=== PATIENT | female | born 1985 | race Two or more races ===

== ENCOUNTER 2023-04-05 23:00 | Inpatient (IN) | payer MEDICAID ==
[~2023-04-05] VITALS: Ht 162.6 cm; Wt 110.8 kg
[2023-04-05] MEDS ORDERED: MECLIZINE HCL 25 MG TAB PO ONE (23:30)
[2023-04-05] MEDS ORDERED: LORazepam 2MG/ML-1ML VIAL IV ONE (23:30)
[2023-04-05] MEDS ORDERED: LACTATED RINGER'S 2,000 ML IV ONE (23:30)
[2023-04-06 00:07] LABS: Basophils # (auto) 0.1 10 ^3/uL (0-0.2); Basophils % (auto) 0.4 % (0.0-2.0); Eosinophils # (auto) 0.2 10 ^3/uL (0-0.8); Eosinophils % (auto) 1.4 % (0.0-7.0); Hematocrit 39.1 % (36.0-46.0); Lymphocytes # (auto) 3.3 10 ^3/uL (0.4-5.4); Lymphocytes % (auto) 23.7 % (10.0-50.0); Mean Corpuscular Hemoglobin 28.3 pg (28.0-32.0); Mean Corpuscular Hgb Conc. 33.3 g/dL (32.0-36.0); Monocytes # (auto) 0.7 10 ^3/uL (0-1.3); Monocytes % (auto) 4.9 % (0.0-12.0); Neutrophils # (auto) 9.8 10 ^3/uL (1.6-8.6); Neutrophils % (auto) 69.6 % (37.0-80.0); Red Cell Distribution Width 15.1 % (11.8-14.3)
[2023-04-06 00:26] LABS: Albumin 3.2 g/dL (3.4-5.0); Potassium 4.4 mmol/L (3.5-5.1)
[2023-04-06 00:28] LABS: BUN/Creatinine Ratio 16.8 (10.0-20.0)
[2023-04-06 00:31] LABS: Bilirubin, Total 0.4 mg/dL (0.2-1.0); Total Protein 7.5 g/dL (6.4-8.2)
[2023-04-06] MEDS ORDERED: ONDANSETRON HCL 4 MG/2 ML VIAL IV ONE (00:45)
[2023-04-06] MEDS ORDERED: LORazepam 2MG/ML-1ML VIAL IV ONE (03:45)
[2023-04-06] MEDS ORDERED: MECLIZINE HCL 25 MG TAB PO ONE (03:45)
[2023-04-06] MEDS ORDERED: DexAMETHasone SOD PHOS 10MG/1ML VIAL INJ IV ONE (03:45)
[2023-04-06 07:11] LABS: Urine Amorphous Crystal FEW /hpf (None Seen); Urine Bacteria NONE SEEN /hpf (None Seen); Urine Blood Negative /uL (Negative); Urine Specific Gravity 1.014 (1.001-1.035); Urine WBC 1 /hpf (0 - 5)
[2023-04-06] MEDS ORDERED: ONDANSETRON HCL 4 MG/2 ML VIAL IV PRN (07:15)
[2023-04-06] MEDS ORDERED: ACETAMINOPHEN 325 MG TAB PO PRN (07:15)
[2023-04-06] MEDS: PROPRANOLOL HCL 20 MG TAB PO SCH (09:26)
[2023-04-06] MEDS: PANTOPRAZOLE 40 MG TAB PO SCH (09:26)
[2023-04-06] MEDS: methIMAzole 5 MG TAB PO SCH (09:27)
[2023-04-06] MEDS: MECLIZINE HCL 25 MG TAB PO PRN ×2 (14:09→22:07)
[2023-04-06] MEDS ORDERED: LORazepam 2MG/ML-1ML VIAL IV PRN (21:00)
[2023-04-06 22:01] VITALS: BP 119/64
[2023-04-06] MEDS ORDERED: ARIP1TAB7 PO (22:13)
[2023-04-06] MEDS ORDERED: PROP80CA40 PO (22:13)
[2023-04-06] MEDS ORDERED: BUPR150T8 PO (22:13)
[2023-04-06] MEDS ORDERED: CHOL500035 PO (22:13)
[2023-04-06] MEDS ORDERED: METF-370 PO (22:13)
[2023-04-06] MEDS ORDERED: ASCO500T5 PO (22:13)
[2023-04-06] MEDS ORDERED: METH10TA87 PO (22:13)
[2023-04-07] MEDS: MECLIZINE HCL 25 MG TAB PO PRN ×3 (04:17→18:16)
[2023-04-07 05:00] VITALS: BP 119/71
[2023-04-07 09:00] VITALS: BP 120/77
[2023-04-07] MEDS: PROPRANOLOL HCL 20 MG TAB PO SCH (10:38)
[2023-04-07] MEDS: PANTOPRAZOLE 40 MG TAB PO SCH (10:38)
[2023-04-07] MEDS: methIMAzole 5 MG TAB PO SCH (10:45)
[2023-04-07 17:01] VITALS: BP 119/74
[2023-04-07 22:00] VITALS: BP 122/76
[2023-04-08 05:00] VITALS: BP 106/61
[2023-04-08] MEDS: MECLIZINE HCL 25 MG TAB PO PRN ×3 (05:32→20:59)
[2023-04-08] MEDS: PANTOPRAZOLE 40 MG TAB PO SCH (10:01)
[2023-04-08] MEDS: methIMAzole 5 MG TAB PO SCH (10:02)
[2023-04-08] MEDS: PROPRANOLOL HCL 20 MG TAB PO SCH (10:02)
[2023-04-08 12:30] VITALS: BP 116/70
[2023-04-08] MEDS: diphenhdrAMINE HCL 25 MG CAP PO PRN (16:29)
[2023-04-08 17:00] VITALS: BP 109/68
[2023-04-08 22:00] VITALS: BP 113/64
[2023-04-09 05:00] VITALS: BP 109/61
[2023-04-09] MEDS: MECLIZINE HCL 25 MG TAB PO PRN ×2 (05:43→14:00)
[2023-04-09 09:00] VITALS: BP 124/79
[2023-04-09] MEDS: PANTOPRAZOLE 40 MG TAB PO SCH (10:50)
[2023-04-09] MEDS: PROPRANOLOL HCL 20 MG TAB PO SCH (10:51)
[2023-04-09] MEDS: methIMAzole 5 MG TAB PO SCH (10:52)
[2023-04-09 13:00] VITALS: BP_SYST 111; BP_SYST 123; BP_DIAS 72; BP_DIAS 77
[2023-04-09] MEDS: diphenhdrAMINE HCL 25 MG CAP PO PRN (21:06)
[2023-04-09 22:00] VITALS: BP 110/73
[2023-04-09] MEDS: DOCUSATE SOD 100 MG CAP PO SCH (22:00)
[2023-04-10 05:00] VITALS: BP 107/58
[2023-04-10] MEDS: MECLIZINE HCL 25 MG TAB PO PRN ×2 (06:59→19:31)
[2023-04-10 07:30] VITALS: BP 124/79
[2023-04-10 08:00] VITALS: BP 113/70
[2023-04-10] MEDS: DOCUSATE SOD 100 MG CAP PO SCH ×2 (10:00→22:00)
[2023-04-10] MEDS: methIMAzole 5 MG TAB PO SCH (10:16)
[2023-04-10] MEDS: PANTOPRAZOLE 40 MG TAB PO SCH (10:17)
[2023-04-10] MEDS: PROPRANOLOL HCL 20 MG TAB PO SCH (10:21)
[2023-04-10 11:50] LABS: Basophils # (auto) 0.1 10 ^3/uL (0-0.2); Basophils % (auto) 0.6 % (0.0-2.0); Eosinophils # (auto) 0.2 10 ^3/uL (0-0.8); Eosinophils % (auto) 1.3 % (0.0-7.0); Hematocrit 41.8 % (36.0-46.0); Hemoglobin 13.7 g/dL (12.2-16.2); Lymphocytes # (auto) 2.6 10 ^3/uL (0.4-5.4); Mean Corpuscular Hemoglobin 27.9 pg (28.0-32.0); Mean Corpuscular Hgb Conc. 32.8 g/dL (32.0-36.0); Mean Corpuscular Volume 85.2 fL (80.0-100.0); Monocytes # (auto) 0.6 10 ^3/uL (0-1.3); Monocytes % (auto) 5.1 % (0.0-12.0); Nucleated Red Blood Cells % 0.2 %; Red Blood Cells 4.91 10^6/uL (4.0-5.20); Red Cell Distribution Width 15.4 % (11.8-14.3); White Blood Cell 11.5 10^3/uL (4.4-10.8)
[2023-04-10 12:00] VITALS: BP 114/74
[2023-04-10 12:13] LABS: BUN/Creatinine Ratio 14.6 (10.0-20.0); Calcium 8.2 mg/dL (8.5-10.1); Potassium 4.1 mmol/L (3.5-5.1)
[2023-04-10 16:00] VITALS: BP 105/61
[2023-04-10] MEDS: diphenhdrAMINE HCL 25 MG CAP PO PRN (20:57)
[2023-04-10 22:00] VITALS: BP 116/62
[2023-04-11 05:00] VITALS: BP 105/57
[2023-04-11 07:30] VITALS: BP 113/70
[2023-04-11 09:00] VITALS: BP 101/61
[2023-04-11] MEDS: DOCUSATE SOD 100 MG CAP PO SCH (10:00)
[2023-04-11] MEDS: PANTOPRAZOLE 40 MG TAB PO SCH (11:07)
[2023-04-11] MEDS: PROPRANOLOL HCL 20 MG TAB PO SCH (11:07)
[2023-04-11] MEDS: MECLIZINE HCL 25 MG TAB PO PRN (11:07)
[2023-04-11] MEDS: methIMAzole 5 MG TAB PO SCH (11:48)
[2023-04-11 13:00] VITALS: BP 128/76
[2023-04-11] MEDS ORDERED: MECL25TA18 PO ×2 (13:31)
[2023-04-11] MEDS ORDERED: APIXABAN 5 MG TAB PO STA (15:36)
[2023-04-11] MEDS ORDERED: APIX5TAB PO ×2 (15:41)
[2023-04-11] MEDS ORDERED: AZIT250T8 PO ×2 (15:41)
[2023-04-11 17:00] VITALS: BP 116/68
[2023-04-11 17:56] VITALS: BP 101/61
== END 2023-04-11 19:30 | disposition home or self-care (01) | DRG 111 ==
LOC: EDBD 23:00 → ER 23:00 → OVERFLOW 04-06 07:22 → CENTRAL 04-06 21:45
PROVIDERS: ADMIT Nurse Practitioner; ATTEND Internal Medicine
DX: R42 Dizziness and giddiness (principal); N17.9 Acute kidney failure, unspecified; E11.65 Type 2 diabetes mellitus with hyperglycemia; D72.829 Elevated white blood cell count, unspecified; E03.9 Hypothyroidism, unspecified; E66.01 Morbid (severe) obesity due to excess calories; K76.0 Fatty (change of) liver, not elsewhere classified; E87.6 Hypokalemia; F31.9 Bipolar disorder, unspecified; G43.909 Migraine, unspecified, not intractable, without status migrainosus; H53.2 Diplopia; H55.00 Unspecified nystagmus; Z86.16 Personal history of COVID-19; Z87.891 Personal history of nicotine dependence; Z82.49 Family history of ischemic heart disease and other diseases of the circulatory system; Z83.3 Family history of diabetes mellitus; Z90.49 Acquired absence of other specified parts of digestive tract; Z68.41 Body mass index [BMI] 40.0-44.9, adult
CPT/HCPCS: 36415; 70480; 70551; 80048; 80053; 81001; 84484; 85025; 93005; 95819; 96361; 96375; 97110; 97116; 97163; 97530; G0378; J1100; J2405

== ENCOUNTER → 2024-05-10 | Outpatient (CLI) | payer MEDICAID ==
[~2024-05-10] MED LIST: ARIP20TA4 PO; ASCO500T5 PO; BUPR150T8 PO; CHOL500035 PO; METF-370 PO; METH10TA87 PO; PROP80CA40 PO
== END | disposition home or self-care (01) ==
LOC: RT 14:45
PROVIDERS: ATTEND Internal Medicine Pulmonary Disease
DX: R06.02 Shortness of breath (principal); R91.1 Solitary pulmonary nodule
CPT/HCPCS: 94060; 94727; 94729